=== PATIENT | male | born 1980 | race Caucasian/White ===

== ENCOUNTER 2020-10-29 15:38 | Outpatient (REF) | payer BC, SELFPAY ==
[2020-10-29 18:19] LABS: MANUAL DIFF FLAG NO
[2020-10-29 18:22] LABS: Basophils Absolute Auto 0.1 X10*3/uL (0.0-0.2); Basophils Percent Auto 0.7 % (0-2); Eosinophils Absolute Auto 0.1 X10*3/uL (0.0-0.4); Eosinophils Percent Auto 1.1 % (0-4); Hematocrit 46.4 % (42-52); Hemoglobin 15.7 g/dl (14.0-18.0); Imm Gran Abs Auto 0.02 X10*3/uL (0.00-0.03); Imm Gran Pct Auto 0.2 % (0.0-0.4); Lymphocytes Absolute Auto 3.3 X10*3/uL (1.2-4.9); Lymphocytes Percent Auto 36.5 % (20-40); Mean Corpuscular HGB Conc 33.8 g/dl (31.0-36.0); Mean Corpuscular Hemoglobin 28.5 pg (27.0-33.0); Mean Corpuscular Volume 84.2 fL (80-98); Mean Platelet Volume 9.5 fL (9.4-12.4); Monocytes Absolute Auto 0.7 X10*3/uL (0.1-1.2); Monocytes Percent Auto 7.3 % (2-11); Neutrophils Percent Auto 54.2 % (45-73); Platelet Count 282 X10*3/uL (160-400); Red Blood Count 5.51 X10*6/uL (4.60-5.80); Red Cell Distribution Width 13.1 % (11.0-16.0); White Blood Count 9.2 X10*3/uL (4.8-10.8)
[2020-10-29 18:49] LABS: Alanine Aminotransferase 24 U/L (0-40); Albumin Level 4.6 g/dL (3.5-5.0); Alkaline Phosphatase 64 U/L (39-117); Anion Gap 12 (12-20); Aspartate Amino Transferase 22 U/L (5-37); Bilirubin Total 0.9 mg/dL (0.0-1.0); Blood Urea Nitrogen 19 mg/dL (9-16); Calcium 9.3 mg/dL (8.4-10.2); Carbon Dioxide 25 mmol/L (22-29); Chloride 109 mmol/L (96-108); Cholesterol 215 mg/dL; Estimated Glomerular Filt Rate > 60; Glucose Fasting 86 mg/dL (60-99); HDL Cholesterol 38 mg/dL; LDL Cholesterol Calculated 149 mg/dl; Potassium 4.2 mmol/L (3.3-5.1); Sodium 142 mmol/L (135-145); Total Protein 7.3 g/dL (6.5-8.0); Triglycerides 140 mg/dL
[2020-10-29 19:11] LABS: Vitamin D 25-OH Total 37.9 ng/mL (>30)
== END 2020-10-29 15:39 | disposition home or self-care (01) ==
LOC: HO.MANLDS 15:38
PROVIDERS: PCP Internal Medicine; Visit Provider Internal Medicine
DX: Z00.00 Encounter for general adult medical examination without abnormal findings (principal)
CPT/HCPCS: 36415; 80053; 80061; 82306; 85025

== ENCOUNTER 2024-08-07 11:56 | Outpatient (REF) | payer BC, SELFPAY ==
--- OUTSIDE RECORDS SUMMARY | 2024-08-07 13:34 | XMS_ITS | Data Portability ---
Author Organization [facility], Telehealth Patient Home Address [address] [place] [address] Assessment No assessment recorded. Plan of Treatment Reminders Order Date Submit Date Provider Last Modified By Organization Details Last Modified Time Details Appointments ANNUAL EXAM 2024 11:30A M DR PEÑA Not available Not available Not available Lab CMP, serum or plasma 2024 025 [facility], [address] [place] [address], [id number], 08/07/2024 12:04:47 CBC w/ auto diff 2024 025 [facility], [address] [place] [address], [id number], 08/07/2024 12:04:47 PSA, serum or plasma 2024 025 [facility], [address] [place] [address], [id number], 08/07/2024 12:04:47 lipid panel, blood 2024 025 [facility], [address] [place] [address], [id number], 08/07/2024 12:04:47 vitamin D, 25-hydrox y, total, serum 2024 025 [facility], [address] [place] [address], [id number], 08/07/2024 12:04:47 CMP, serum or plasma 2023 024 [facility] (Out[facility]), [address] [place] [address], [id number], 03/15/2023 12:31:41 lipid panel, blood 2023 024 [facility] (Outpatient), [address] [place] [address], [id number], 03/19/2023 14:27:30 CBC w/ diff 2023 024 [facility] (Outpatient), [address] [place] [address], [id number], 03/19/2023 14:19:51 CMP, serum or plasma 2020 021 [facility], [address] [place] [address], [id number], 10/30/2020 12:48:45 lipid panel, blood 2020 021 [facility], [address] [place] [address], [id number], 10/30/2020 12:48:45 CBC w/ diff 2020 021 [facility], [address] [place] [address], [id number], 10/30/2020 12:48:45 vitamin D, 25-hydrox y, total, serum 2020 021 [facility], [address] [place] [address], [id number], 10/30/2020 12:48:45 Referral orthopedi c referral - Please schedule patient an appointme nt 2019 020 monica Silva MD, [address] [place] [address], [id number], 06/22/2019 09:02:12 Procedures None recorded. Surgeries None recorded. Imaging None recorded. Medication Orders ciproflox acin 500 mg tablet [address] [id number], [address] [place], [place], [id number], 03/15/2023 12:04:32 trazodone 50 mg tablet [address] [id number], [address] [place], [place], [id number], 03/09/2022 12:07:02 Patient TargetsNo targets recorded. Patient InstructionsNo instructions recorded. Reason for Referral Orthopedic Referral for Rupt ure of tendon of biceps right bicep tendon rupture Please schedule patient an appointment Referring Physician: Evette Patel, Internal Medicine, Encounter Date: 06/20/2019 Results Created Date Observation Date Name Description Value Unit Range Abnormal Flag Note LastModifiedBy Organization Detail LastModifiedTime Result Notes None recorded. 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 Medical Equipment None Reported. Allergies No known drug allergies Medications Name Sig Start Date Stop Date Status Note LastModified by Organization Details LastModified Time Augmentin 875 mg-125 mg tablet Take 1 tablet every 12 hours by oral route for 7 days. 11/01 completed Not Available Not Available Not Available trazodone 50 mg tablet Take 1 tablet every day by oral route for 30 days. 03/09 completed Not Available Not Available Not Available ondansetron HCl 8 mg tablet TAKE 1 TABLET BY MOUTH TWICE DAILY FOR 14 DAYS NEEDED 03/15 completed Not Available Not Available Not Available Zithromax Z-Darrell 250 mg tablet TAKE 2 TABLETS (500 MG) BY ORAL ROUTE ONCE DAILY FOR 1 DAY THEN 1 TABLET (250 MG) BY ORAL ROUTE ONCE DAILY FOR 4 DAYS 11/01 completed Not Available Not Available Not Available ciprofloxac in 500 mg tablet TAKE 1 TABLET BY MOUTH EVERY DAY 03/15 completed Not Available Not Available Not Available ondansetron 8 mg disintegrat ing tablet DISSOLVE 1 TABLET ON THE TONGUE TWICE DAILY FOR 14 DAYS 03/15 completed Not Available Not Available Not Available oseltamivir 75 mg capsule 03/14 completed Not Available Not Available Not Available Advil 200 mg tablet Take 2 tablets as needed by oral route. 10/29 completed Not Available Not Available Not Available dicyclomine 10 mg capsule TAKE 1 CAPSULE BY MOUTH THREE TIMES DAILY FOR 7 DAYS NEEDED 03/15 completed Not Available Not Available Not Available omeprazole Take one tablet prn OTC 11/01 completed Not Available Not Available Not Available Vitals Date Recorded Body height Body mass index (BMI) Body weight Heart rate Oxygen saturation Oxygen saturation in Arterial blood by Pulse oximetry Systolic blood pressure Diastolic blood pressure Provider Name and Address Organization Details Last Updated DateTime 3 175.26 cm 30.5 kg/m2 71942.5 4 g 93 /min 97 % 97 % 172 mm[Hg] 100 mm[Hg] Jhonatan Peña, DO [address] [place], [address] [place], [place] - [facility] 3 12:07:49 Date Recorded Body height Body mass index (BMI) Body weight Heart rate Oxygen saturation Oxygen saturation in Arterial blood by Pulse oximetry Systolic blood pressure Diastolic blood pressure Provider Name and Address Organization Details Last Updated DateTime 4 175.26 cm 32.5 kg/m2 63920.3 2 g 91 /min 97 % 97 % 142 mm[Hg] 78 mm[Hg] Jhonatan Peña, DO [address] [place], [address] [facility] 4 12:04:04 Date Recorded Body weight Heart rate Oxygen saturation Oxygen saturation in Arterial blood by Pulse oximetry Systolic blood pressure Diastolic blood pressure Provider Name and Address Organization Details Last Updated DateTime 0 48738.8 4 g 110 /min 98 % 98 % 150 mm[Hg] 100 mm[Hg] Rosita Mccray [facility] 0 14:07:48 Date Recorded Body height Body mass index (BMI) Body weight Heart rate Oxygen saturation Oxygen saturation in Arterial blood by Pulse oximetry Systolic blood pressure Diastolic blood pressure Provider Name and Address Organization Details Last Updated DateTime 5 175.26 cm 32.5 kg/m2 83070.3 2 g 88 /min 98 % 98 % 146 mm[Hg] 78 mm[Hg] Laisha Paul [facility] 5 11:31:56 Date Recorded Body weight Heart rate Oxygen saturation Oxygen saturation in Arterial blood by Pulse oximetry Systolic blood pressure Diastolic blood pressure Provider Name and Address Organization Details Last Updated DateTime 1 66598.4 3 g 95 /min 98 % 98 % 148 mm[Hg] 80 mm[Hg] Jhonatan Peña, DO [address] [place], [address] [facility] 1 15:07:59 Social History Question Answer Notes LastModified by Organizat ion Details LastModified Time Tobacco Smoking Status Never Smoker uses [facility] Not Available [facility] 12/18/2019 03:36:23 What Was The Date Of Your Most Recent Tobacco Screening? 08/07/2024 [email or web address] Information not available 08/07/2024 Sex: Unknown Functional Status Question Answer Note LastModified by Organization D etails LastModified Time Do you or have you ever used any other forms of tobacco or nicotine? No [email or web address] Information not available 03/09/2022 Mental Status None recorded. Family History Nothing Reported. Medical History No medical history recorded. Past Encounters Encounter ID Performer Location Encounter Start Date Encounter Closed Date Diagnosis/Indication Diagnosis SNOMED-CT Code Diagnosis ICD10 Code Diagnosis Note [id number] Jhonatan Peña DO [facility] [address] [address] 03/14/2018 10:01:42 03/14/2018 10:27:28 Acute sinusitis 11611362 J01.90 flonase Increased blood pressure 18086652 R03.0 monitor [id number] Jhonatan Peña DO [facility] [address] [address] 03/17/2018 15:55:33 03/17/2018 16:44:58 Essential hypertension 33045582 I10 continues to be mildly elevated Acute sinusitis 65443658 J01.90 flonase will change from zpack to augment Neck pain 03833768 M54.2 improves with advil Headache 66503954 R51 improves with advil [id number] Jhonatan Peña [facility] [address] [address] 11/01/2018 15:43:38 11/01/2018 16:18:34 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 will fill out the fmla for this [id number] Jhonatan Peña [facility] [address] [address] 06/20/2019 14:02:40 06/20/2019 15:00:45 Rupture of tendon of biceps 647841175 M66.829 will refer to ortho surgery [id number] Jhonatan Peña [facility] [address] [address] 10/29/2020 15:01:30 10/29/2020 15:30:54 Adult health examination 557428106 Z00.00 well exam is doing ok no major issues [id number] Jhonatan Peña [facility] [address] [address] 03/09/2022 11:57:21 03/10/2022 09:22:15 Active or passive immunization 663505085 Z23 patient advised he is due for flu shot & tdap Adult heal th examination 178224389 Z00.01 well exam is doing ok no major issues Pseudomona s aeruginosa infection of nail 553733163 B96.5 [id number] Jhonatan Peña [facility] [address] [facility] [address] 03/15/2023 12:00:43 03/15/2023 12:32:18 Active or passive immunization 633314435 Z23 patient advised he is due for flu shot & tdap Adult heal th examination 538882881 Z00.00 well exam is doing ok no major issues [id number] Jhonatan Peña [facility] [address] [facility] [address] 08/07/2024 11:26:24 08/07/2024 12:03:18 Active or passive immunization 243986585 Z23 patient advised he is due for flu shot & tdap Well adult 104271867 Z00 .00 well exam is doing ok no major issues Health Concerns Section Related Observation LastModified by Organization Detai ls LastModified Time None Recorded Concern Status LastModified by Organization Details LastModified Time None Recorded Advance Directives Directive None Recorded Payers Insurance Date Sequence Insurance Name Policy Number Policy Espinoza Covered Member ID Espinoza Member ID Guarantor Name 08/06/2024 1 [employer] [id number] Nikunj Amanda [id number] Nikunj Amanda Notes Date Note Type Note Provider Name a nd Address Organization Details Recorded Time 0 text/html c/o right bicep pain pt coming in with right bicep pain after lifting large old TV at home states that noticed immediate pain in right shoulder before feeling it more in the right insertion point of the bicep at the radius patient has a noticable deformity of the right bicep as it retracts toward the right shoulder away from the radius painful to palpation at the insertion point is able to flex and extend the arm but states it does feel weaker than normal pain with flexion and extension no numbness and tingling pt ruptured right bicep tendon NORA ROBERTS [address] [place], [address], [facility] 06/20/2019 15:00:06 1 text/html her for rechk still doing nicotine pouch but is done vapingno major issues otherwise Jhonatan Bailey CatalinarobbieDO [address] [place] [address], [address], [facility] 10/29/2020 15:27:23 3 text/html Annual WellnessReported bypatient.Diet and Nutrition:healthy diet Fracture Risk:no history of fractures; no recent explained fracture; no sudden unexplained fractures; no previous musculoskeletal injuries Physical Activity:exercises on a regular basis; recent increase in physical activity; good physical condition Additional Lifestyle Factors:no tobacco use; no alcohol intake; stopped drinking alcohol Depression Risk:never feels sad, empty, or tearful; no loss of interest in activities; no significant changes in weight; no sleep disturbances or insomnia; no agitation; no loss of energy; no feelings of worthlessness or guilt; no thoughts of suicide; no history of depression; no history of mood disorders Hearing:no loss of hearing Vision:no vision problems Jhonatan ButtsJazmin Peña DO [address] [place] [address], [phone], [facility] 03/09/2022 12:43:08 4 text/html Annual WellnessReported bypatient.Diet and Nutrition:healthy diet Fracture Risk:no history of fractures; no recent explained fracture; no sudden unexplained fractures; no previous musculoskeletal injuries Physical Activity:exercises on a regular basis; recent increase in physical activity; good physical condition Additional Lifestyle Factors:no tobacco use; no alcohol intake; stopped drinking alcohol Depression Risk:never feels sad, empty, or tearful; no loss of interest in activities; no significant changes in weight; no sleep disturbances or insomnia; no agitation; no loss of energy; no feelings of worthlessness or guilt; no thoughts of suicide; no history of depression; no history of mood disorders Hearing:no loss of hearing Vision:no vision problems Jhonatan ButtsJazmin Peña DO [address] [place] [address], [address], [facility] 03/15/2023 12:31:33 5 text/html Annual WellnessReported bypatient.Diet and Nutrition:healthy diet Fracture Risk:no history of fractures; no recent explained fracture; no sudden unexplained fractures; no previous musculoskeletal injuries Physical Activity:exercises on a regular basis; recent increase in physical activity; good physical condition Additional Lifestyle Factors:no tobacco use; no alcohol intake; stopped drinking alcohol Depression Risk:never feels sad, empty, or tearful; no loss of interest in activities; no significant changes in weight; no sleep disturbances or insomnia; no agitation; no loss of energy; no feelings of worthlessness or guilt; no thoughts of suicide; no history of depression; no history of mood disorders Hearing:no loss of hearing Vision:no vision problems Jhonatan Peña, DO [address] [facility], [place], [address], [facility] 08/07/2024 11:54:07
[2024-08-07 18:36] LABS: MANUAL DIFF FLAG NO
[2024-08-07 19:02] LABS: Alanine Aminotransferase 29 U/L (0-40); Albumin Level 4.6 g/dL (3.5-5.0); Alkaline Phosphatase 57 U/L (39-117); Anion Gap 14 (12-20); Aspartate Amino Transferase 28 U/L (5-37); Bilirubin Total 0.6 mg/dL (0.0-1.0); Blood Urea Nitrogen 15 mg/dL (9-16); Calcium 9.9 mg/dL (8.4-10.2); Carbon Dioxide 25 mmol/L (22-29); Chloride 107 mmol/L (96-108); Cholesterol 185 mg/dL (<200); Estimated Glomerular Filt Rate > 60; Glucose Random 98 mg/dL (60-115); HDL Cholesterol 36 mg/dL (>40); LDL Cholesterol Calculated 105 mg/dL (<100); Potassium 4.1 mmol/L (3.3-5.1); Sodium 142 mmol/L (135-145); Triglycerides 220 mg/dL (<150)
[2024-08-07 19:03] LABS: Basophils Absolute Auto 0.1 X10*3/uL (0.0-0.2); Basophils Percent Auto 0.6 % (0-2); Eosinophils Absolute Auto 0.1 X10*3/uL (0.0-0.4); Eosinophils Percent Auto 1.4 % (0-4); Hematocrit 45.3 % (42.0-52.0); Hemoglobin 15.6 g/dl (14.0-18.0); Imm Gran Abs Auto 0.03 X10*3/uL (0.00-0.03); Imm Gran Pct Auto 0.4 % (0.0-0.4); Lymphocytes Absolute Auto 3.5 X10*3/uL (1.2-4.9); Lymphocytes Percent Auto 44.1 % (20-40); Mean Corpuscular HGB Conc 34.4 g/dl (31.0-36.0); Mean Corpuscular Hemoglobin 29.1 pg (27.0-33.0); Mean Corpuscular Volume 84.4 fL (80.0-98.0); Mean Platelet Volume 9.8 fL (9.4-12.4); Monocytes Absolute Auto 0.7 X10*3/uL (0.1-1.2); Neutrophils Absolute Auto 3.5 x10*3/uL (2.0-8.3); Neutrophils Percent Auto 44.5 % (45-73); Platelet Count 263 X10*3/uL (160-400); Red Blood Count 5.37 X10*6/uL (4.60-5.80); Red Cell Distribution Width 13.2 % (11.0-16.0); White Blood Count 7.9 X10*3/uL (4.8-10.8)
[2024-08-07 19:12] LABS: Prostate Specific Antigen 0.59 ng/mL (<0.05-4.0)
[2024-08-07 19:21] LABS: Vitamin D 25-OH Total 76.7 ng/mL (>30)
== END 2024-08-07 11:57 | disposition home or self-care (01) ==
LOC: HO.MANLDS 11:56
PROVIDERS: Visit Provider Internal Medicine
DX: Z00.00 Encounter for general adult medical examination without abnormal findings (principal); Z12.5 Encounter for screening for malignant neoplasm of prostate; Z13.220 Encounter for screening for lipoid disorders; Z13.228 Encounter for screening for other metabolic disorders; Z13.0 Encounter for screening for diseases of the blood and blood-forming organs and certain disorders involving the immune mechanism
CPT/HCPCS: 36415; 80053; 80061; 82306; 84153; 85025